=== PATIENT | male | born 1995 | race Caucasian/White ===

== ENCOUNTER 2021-12-30 17:47 | Emergency (ER) | payer SELFPAY | END 2021-12-30 21:14 | disposition left against medical advice (07) | LOC: JD.ED 17:47 | DX: R22.42 Localized swelling, mass and lump, left lower limb (principal); F17.210 Nicotine dependence, cigarettes, uncomplicated | CPT/HCPCS: 36415; 80053; 85025; 86140; 93971-26-LT; 93971-LT; 99284 ==

== ENCOUNTER 2022-01-21 23:17 | Emergency (ER) | payer SELFPAY | END 2022-01-21 23:22 | LOC: JD.ED 23:17 | DX: Z53.21 Procedure and treatment not carried out due to patient leaving prior to being seen by health care provider (principal) ==

== ENCOUNTER 2022-01-22 07:00 | Emergency (ER) | payer SELFPAY | END 2022-01-22 07:55 | disposition home or self-care (01) | LOC: JD.ED 07:00 | DX: M65.4 Radial styloid tenosynovitis [de Quervain] (principal); Z72.0 Tobacco use | CPT/HCPCS: 99283 ==

== ENCOUNTER 2022-06-20 18:59 | Emergency (ER) | payer SELFPAY | END 2022-06-20 21:01 | disposition home or self-care (01) | LOC: JD.ED 18:59 | DX: R22.32 Localized swelling, mass and lump, left upper limb (principal); W22.09XA Striking against other stationary object, initial encounter | CPT/HCPCS: 73140-26-F3; 73140-F3; 99283 ==

== ENCOUNTER 2022-07-16 18:16 | Emergency (ER) | payer SELFPAY | END 2022-07-16 19:21 | disposition home or self-care (01) | LOC: JD.ED 18:16 | DX: L03.116 Cellulitis of left lower limb (principal) | CPT/HCPCS: 99283 ==

== ENCOUNTER 2022-08-12 08:12 | Emergency (ER) | payer SELFPAY ==
[2022-08-12] MEDS ORDERED: Sulfamethoxazole/Trimethoprim 800-160 MG Tab PO ONE (08:41)
[2022-08-12] MEDS ORDERED: cefTRIAXone 1 GM, Lidocaine 1% 2.1 ML IM ONE ×2 (08:44)
[2022-08-12] MEDS ORDERED: cefTRIAXone 1 GM, Lidocaine 1% 2.1 ML IM SCH ×2 (08:45)
[2022-08-12] MEDS ORDERED: Lidocaine 1% 10 ML MDV INJECT ONE (08:59)
[2022-08-12] MEDS ORDERED: Lidocaine 1% 2 ML ONE (09:09)
[2022-08-12] MEDS ORDERED: Diphtheria,Pertussis(Acell),Tetanus Vaccine 0.5 ML Syringe IM ONE (10:53)
== END 2022-08-12 11:13 | disposition home or self-care (01) ==
LOC: JD.ED 08:12
DX: S62.666A Nondisplaced fracture of distal phalanx of right little finger, initial encounter for closed fracture (principal); Z23 Encounter for immunization; W23.0XXA Caught, crushed, jammed, or pinched between moving objects, initial encounter
CPT/HCPCS: 12001; 73130; 90471; 90715; 96372; 99283; A9270; J0696; J3490

== ENCOUNTER 2022-10-31 16:20 | Emergency (ER) | payer SELFPAY | END 2022-10-31 17:15 | LOC: JD.ED 16:20 | DX: Z53.21 Procedure and treatment not carried out due to patient leaving prior to being seen by health care provider (principal) ==

== ENCOUNTER 2023-03-24 15:27 | Emergency (ER) | payer MEDICAID | END 2023-03-24 16:32 | disposition home or self-care (01) | LOC: JD.ED 15:27 | DX: H53.8 Other visual disturbances (principal) | CPT/HCPCS: 99283 ==

== ENCOUNTER 2023-08-10 20:47 | Emergency (ER) | payer SELFPAY ==
[2023-08-10] MEDS: Amoxicillin/Clavulanate K 875-125 MG Tab PO ONE (21:19)
== END 2023-08-10 21:27 | disposition home or self-care (01) ==
LOC: JD.ED 20:47
DX: K04.7 Periapical abscess without sinus (principal)
CPT/HCPCS: 99282; A9270; 99283

== ENCOUNTER 2024-02-11 17:27 | Emergency (ER) | payer BC ==
[2024-02-11 18:14] LABS: BASOPHILS PERCENT AUTO 0.6 % (0.0-1.0); EOSINOPHILS ABSOLUTE AUTO 0.1 K/mm3 (0.0-0.4); EOSINOPHILS PERCENT AUTO 2.2 % (0.0-6.0); HEMATOCRIT 46.2 % (42.0-52.0); HEMOGLOBIN 15.4 gm/dl (14.0-18.0); IMMATURE GRAN ABSOLUTE AUTO 0.01 K/mm3 (0.00-0.05); IMMATURE GRAN PERCENT AUTO 0.2 % (0.0-0.4); LYMPHOCYTES PERCENT AUTO 40.1 % (24.0-44.0); MEAN CORPUSCULAR HEMOGLOBIN 30.5 pg (28.0-32.0); MEAN CORPUSCULAR HGB CONC 33.3 g/dl (32.0-36.0); MEAN CORPUSCULAR VOLUME 91.5 fl (83.0-99.0); MEAN PLATELET VOLUME 10.2 fl (9.4-12.4); MONOCYTES ABSOLUTE AUTO 0.4 K/mm3 (0.0-0.8); MONOCYTES PERCENT AUTO 8.2 % (0.0-8.0); NEUTROPHILS ABSOLUTE AUTO 2.4 K/mm3 (1.8-7.7); NEUTROPHILS PERCENT AUTO 48.7 % (41.0-71.0); PLATELET COUNT,PLT 218 K/mm3 (150-400); RED BLOOD CELL COUNT 5.05 M/mm3 (4.52-5.90); WHITE BLOOD CELL COUNT,WBC 5.01 K/mm3 (3.9-11.3)
[2024-02-11 18:38] LABS: A/G RATIO 1.6 (1-2); ALBUMIN 4.2 g/dl (3.4-5.0); ANION GAP 12.5 (5-15); BILIRUBIN TOTAL 0.3 mg/dL (0.2-1.0); EST CRCL DRUG DOSING (CG) 100.67 mL/min; POTASSIUM,K 4.5 mEq/L (3.5-5.1); PROTEIN TOTAL,TP 6.9 g/dl (6.4-8.2)
== END 2024-02-11 19:44 | disposition home or self-care (01) ==
LOC: JD.ED 17:27
DX: H53.8 Other visual disturbances (principal); F17.210 Nicotine dependence, cigarettes, uncomplicated; Z79.899 Other long term (current) drug therapy
CPT/HCPCS: 36415; 70450; 70450-26; 80053; 85025; 99283; 99284